=== PATIENT | female | born 1965 | race Caucasian/White ===

== ENCOUNTER → 2016-07-31 | Outpatient (CLI) | payer BC | LOC: RAD 15:25 | PROVIDERS: ATTEND Nurse Practitioner Family | DX: R10.2 Pelvic and perineal pain (principal) | CPT/HCPCS: 76830 ==

== ENCOUNTER → 2016-09-14 | Outpatient (CLI) | payer BC | LOC: WI 10:06 | PROVIDERS: ATTEND Family Medicine | DX: N63 Unspecified lump in breast (principal) | CPT/HCPCS: 76642 ==

== ENCOUNTER → 2017-04-04 | Outpatient (CLI) | payer BC ==
--- NOTE | 2017-04-04 11:32 | WOMENS IMAGING REPORT ---
EXAM DESCRIPTION: BILAT SCREENING MAMMO W/CAD COMPLETED DATE/TIME: 04/04/2017 10:50 am REASON FOR STUDY: ROUTINE SCREENING; Z12.31 Z12.31 ENCNTR SCREEN MAMMOGRAM FOR MALIGNANT NEOPLASM O F [place] COMPARISON: 2013 to 2015 TECHNIQUE: Standard craniocaudal and mediolateral oblique views of each breast recorded using Taomeea l acquisition. LIMITATIONS: None. FINDINGS: No masses, calcifications or architectural distortion. No areas of suspicion. Read with the assistance of CAD. .[facility] - R2 Cenova Version 1.3 .[facility] - R2 Cenova Version 1.3 .[facility] - R2 Cenova Version 2.4 .[facility] [place] R2 Cenova Version 2.4 .[facility] - R2 Corporate Tax Preparer Version 9.2 IMPRESSION: NORMAL MAMMOGRAM. BIRADS 1. BREAST DENSITY: b. There are scattered areas of fibroglandular density. BIRAD: 1 NEGATIVE RECOMMENDATION: ROUTINE SCREENING COMMENT: The patient has been notified of the results by letter per SA requirements. Additional no tification policies are in place for contacting patient with suspicious or incomplete findings. Quality ID #[id number]: The [employer] recommends an annual screening mammogram for women aged 40 years or over. This facility utilizes a reminder system to ensure that all patients receive reminder letters, and/or direct phone calls for appointments. This includes reminders for routine scr eening mammograms, diagnostic mammograms, or other Breast Imaging Interventions when appropriate. Th is patient will be placed in the appropriate reminder system. The [employer] (ACR) has developed recommendations for screening MRI of the breast s in certain patient populations, to be used in conjunction with mammography. Breast MRI surveillanc e may be appropriate for women with more than 20% lifetime risk of developing breast cancer as deter mined by genetic testing, significant family history of the disease, or history of mantle radiation f or Hodgkins Disease. ACR Practice Guidelines 2008. TECHNICAL DOCUMENTATION: FINDING NUMBER: (1) ASSESSMENT: (1) JOB ID: [id number] [employer]- All Rights Reserved
== END ==
LOC: WI 09:18
PROVIDERS: ATTEND Family Medicine
DX: Z12.31 Encounter for screening mammogram for malignant neoplasm of breast (principal)
CPT/HCPCS: 77067; G0202

== ENCOUNTER 2017-07-23 09:04 | Emergency (ER) | payer SELFPAY ==
[2017-07-23] MEDS ORDERED: KETOROLAC TROMETHAMINE 60 MG/2 ML SDV IM ONE (09:41)
--- NOTE | 2017-07-23 11:00 | ER Document Report ---
ED General - General Chief Complaint: Breast Problem Stated Complaint: BREAST PAIN Time Seen by Provider: 07/23/17 09:22 Mode of Arrival: Ambulatory Information source: Patient TRAVEL OUTSIDE OF THE U.[place]. IN LAST 30 DAYS: No - HPI Notes: 52-year-old female presents today with complaints of left breast burning 4 days ago and with the rash around her left nipple showing last night. Reports pain is 6 out of 10, throbbing and aching. Denies any fevers or chills. Denies any drainage from nipple. Denies any masses around her breasts. Has not tried any dezy-yos-mvadbcq medication for pain. States pain is progressive , nothing makes better. Has not tried any warm compresses. Patient denies being in any wooded areas. Eating and drinking without issues. Worse with palpation, states nothing makes better. - Related Data Allergies/Adverse Reactions: SULFUR Adverse Reaction (Uncoded 07/23/17 09:05) Hives Past Medical History - General Information source: Patient - Social History Smoking Status: Current Every Day Smoker Chew tobacco use (# tins/day): No Frequency of alcohol use: Occasional Drug Abuse: None Family History: denies: CAD Patient has suicidal ideation: No Patient has homicidal ideation: No - Past Medical History Cardiac Medical History: Reports: Hx Hypercholesterolemia, Hx Hypertension Denies: Hx Coronary Artery Disease, Hx DVT, Hx Heart Attack Pulmonary Medical History: Reports: Hx Bronchitis Denies: Hx Asthma, Hx COPD, Hx Pneumonia Neurological Medical History: Denies: Hx Cerebrovascular Accident, Hx Seizures Renal/ Medical History: Denies: Hx Peritoneal Dialysis Musculoskeltal Medical History: Reports Hx Arthritis Psychiatric Medical History: Reports: Hx Bipolar Disorder, Hx Depression Past Surgical History: Reports: Hx Tubal Ligation. Denies: Hx Hysterectomy - Immunizations Hx Diphtheria, Pertussis, Tetanus Vaccination: Yes - 2008 Review of Systems - Review of Systems Constitutional: No symptoms reported EENT: No symptoms reported Cardiovascular: No symptoms reported Respiratory: No symptoms reported Gastrointestinal: No symptoms reported Genitourinary: No symptoms reported Female Genitourinary: No symptoms reported Musculoskeletal: No symptoms reported Skin: See HPI Hematologic/Lymphatic: No symptoms reported Neurological/Psychological: No symptoms reported Physical Exam - Vital signs Vitals: Temp Pulse Resp BP Pulse Ox 98.7 F 65 16 162/79 H 97 07/23/17 09:14 07/23/17 09:14 02/06/18 09:14 07/23/17 09:14 07/23/17 09:14 - Notes Notes: PHYSICAL EXAMINATION: GENERAL: Well-appearing, well-nourished and in no acute distress. HEAD: Atraumatic, normocephalic. EYES: Pupils equal round and reactive to light, extraocular movements intact, conjunctiva are normal. ENT: Nares patent, oropharynx clear without exudates. Moist mucous membranes. NECK: Normal range of motion, supple without lymphadenopathy LUNGS: Breath sounds clear to auscultation bilaterally and equal. No wheezes rales or rhonchi. HEART: Regular rate and rhythm without murmurs ABDOMEN: Soft, nontender, nondistended abdomen. No guarding, no rebound. No masses appreciated. Female : deferred Musculoskeletal: Normal range of motion, no pitting or edema. No cyanosis. NEUROLOGICAL: Cranial nerves grossly intact. Normal speech, normal gait. Normal sensory, motor exams PSYCH: Normal mood, normal affect. SKIN: Warm, Dry, normal turgor, no rashes or lesions note besides left breast with excoriation on nipple, noted bull's-eye rash approximately 2 cm from the nipple, circumferential. scant erythema. No induration, drainage, no fluctuance. No palpated lump on breast examination. No appreciated lymphadenopathy in left axilla area. Course - Re-evaluation Re-evalutation: Rechecked the patient who is resting comfortably. On re-exam, patient is symptomatically improved. Discussed the results of the labs/radiology as well as the diagnosis at great length. u/s left breast negative for any acute findings. take antibiotics as directed with food, eat yogurt daily to prevent loose stool. Discussed the need to return to the ER for any new or worsening sx. Patient understands to take the Rx as directed. All questions answered. Patient comfortable with the decision to go home. - Vital Signs Vital signs: Temp Pulse Resp BP Pulse Ox 97.8 F 71 18 154/82 H 99 07/23/17 13:06 07/23/17 13:06 07/23/17 13:06 07/23/17 13:06 07/23/17 13:06 Discharge - Discharge Clinical Impression: Mastitis Condition: Good Disposition: HOME, SELF-CARE Additional Instructions: Cellulitis You have an infection of your skin and underlying soft tissues called cellulitis. This is due to bacteria, which can enter through any break in the skin, or even through an irritated hair follicle. Untreated, cellulitis will usually worsen. Antibiotics are required. Usually, warm packs or warm soaks, and elevation of the infected area are recommended. You should start getting better within 24 to 36 hours. Most infections respond quickly to the right medication. Follow-up care is important, however, to check for abscess (boil) formation, unsuspected foreign body, or resistant infection. If you develop fever, chills, or if the area of infection is becoming rapidly more swollen or painful, call the doctor at once. Warm compress 20 minutes on 20 minutes off several times a day. Follow-up with primary care provider as well as [facility] for left-sided mastitis. Take antibiotics with food, eat yogurt daily to prevent loose stool. If erythema, swelling, pain comes worse worse outside of marked area, return to the emergency room since possible. Prescriptions: Doxycycline Hyclate 100 mg PO BID #20 capsule Forms: Return to Work Referrals: SAMANTHA FRANCOIS MD [COMMUNITY BASED STAFF] - Follow up in 3-5 days PHILIP GONZALEZ MD [ACTIVE STAFF] - Follow up in 3-5 days
--- NOTE | 2017-07-23 12:26 | RADIOLOGY REPORT (SQ) ---
EXAM DESCRIPTION: U/S BREAST UNILATERAL LIMITED COMPLETED DATE/TIME: 07/23/2017 11:43 am REASON FOR STUDY: pain in L breast, r/o abscess/cyst COMPARISON: None TECHNIQUE: Static and Realtime grayscale interrogation of focal area(s) of concern in the left breas t(s) acquired. Selected color doppler/spectral images saved to PACS. LIMITATIONS: None. FINDINGS: Masses:No cystic or solid masses identified Architecture:No alteration of normal morphology. No skin thickening. No edema. Other: Increased vascularity involving the nipple which is enlarged probably secondary to inflammatio n. Abscess not identified. Echogenic focus within the nipple could represent ingrown hair follicle. IMPRESSION: Abscess or abnormal fluid collection not identified. Nipple increase in size secondary to inflammation and edema. Echogenic focus within the nipple could represent ingrown hair follicle. BIRAD: 1 Negative. RECOMMENDATION: RECOMMENDED FOLLOW-UP: Follow-up as clinically indicated. COMMENT: The [employer] (ACR) has developed recommendations for screening MRI of the breasts in certain patient populations, to be used in conjunction with mammography. Breast MRI s urveillance may be appropriate for women with more than 20% lifetime risk of developing breast cancer as determined by genetic testing, significant family history of the disease, or history of mantle r adiation for Hodgkins Disease. ACR Practice Guidelines 2008. TECHNICAL DOCUMENTATION: FINDING NUMBER: (1) ASSESSMENT: (1) JOB ID: [id number] [employer]- All Rights Reserved
[2017-07-23 13:07] VITALS: BP 154/82
== END 2017-07-23 13:06 | disposition home or self-care (01) ==
LOC: ER 09:04
DX: N61.0 Mastitis without abscess (principal); F17.200 Nicotine dependence, unspecified, uncomplicated; I10 Essential (primary) hypertension
CPT/HCPCS: 99284; 96372; 76642; J1885

== ENCOUNTER 2017-08-19 06:02 | Emergency (ER) | payer SELFPAY ==
--- NOTE | 2017-08-19 06:16 | ER Document Report ---
ED Medical Screen (RME) - General Chief Complaint: Fever Stated Complaint: POSSIBLE FEVER Time Seen by Provider: 08/19/17 06:14 Mode of Arrival: Ambulatory Information source: Patient TRAVEL OUTSIDE OF THE U.[place]. IN LAST 30 DAYS: No - HPI Patient complains to provider of: MULTIPLE COMPLAINTS Notes: 08/19/17 06:15 The patient is here with him multiple complaints for the last 2 weeks. She reports nausea, vomiting, fever, dysuria, cough. Physical exam shows a benign exam with clear lungs and no distress. Minimal tenderness to the suprapubic area. An initial examination was made on the patient as part of the triage process, and it was determined a more comprehensive evaluation was necessary. Initial labs were ordered and patient was transferred to another provider in the ED who assumed care and finished evaluation and plan. - Related Data Allergies/Adverse Reactions: SULFUR Adverse Reaction (Uncoded 08/19/17 06:03) Hives Past Medical History - Past Medical History Cardiac Medical History: Reports: Hx Hypercholesterolemia, Hx Hypertension Denies: Hx Coronary Artery Disease, Hx DVT, Hx Heart Attack Pulmonary Medical History: Reports: Hx Bronchitis Denies: Hx Asthma, Hx COPD, Hx Pneumonia Neurological Medical History: Denies: Hx Cerebrovascular Accident, Hx Seizures Renal/ Medical History: Denies: Hx Peritoneal Dialysis Musculoskeltal Medical History: Reports Hx Arthritis Psychiatric Medical History: Reports: Hx Bipolar Disorder, Hx Depression Past Surgical History: Reports: Hx Tubal Ligation. Denies: Hx Hysterectomy - Immunizations Hx Diphtheria, Pertussis, Tetanus Vaccination: Yes - 2008 Physical Exam - Vital signs Vitals: Temp Pulse Resp BP Pulse Ox 97.9 F 82 20 159/82 H 97 08/19/17 06:07 08/19/17 06:07 08/19/17 06:07 08/19/17 06:07 08/19/17 06:07 Course - Vital Signs Vital signs: Temp Pulse Resp BP Pulse Ox 97.9 F 82 20 159/82 H 97 08/19/17 06:07 08/19/17 06:07 08/19/17 06:07 08/19/17 06:07 08/19/17 06:07
[2017-08-19 06:37] LABS: ABSOLUTE BASOPHILS # (AUTO) 0.1 10^3/uL (0.0-0.2); ABSOLUTE LYMPHOCYTES (AUTO) 1.9 10^3/uL (0.5-4.7); ABSOLUTE MONOCYTES (AUTO) 0.6 10^3/uL (0.1-1.4); ABSOLUTE NEUT (AUTO) 6.3 10^3/uL (1.7-8.2); EOSINOPHILS % (AUTO) 0.5 % (0-6); HEMATOCRIT 43.5 % (36.0-47.0); HEMOGLOBIN 15.2 g/dL (12.0-15.5); LYMPHOCYTES % (AUTO) 21.7 % (13-45); MEAN CORPUSCULAR HEMOGLOBIN 34.8 pg (27.0-33.4); MEAN CORPUSCULAR HGB CONC 34.9 g/dL (32.0-36.0); MEAN CORPUSCULAR VOLUME 100 fl (80-97); MONOCYTES % (AUTO) 6.5 % (3-13); PLATELET COUNT 215 10^3/uL (150-450); RED BLOOD COUNT 4.36 10^6/uL (3.72-5.28); RED CELL DISTRIBUTION WIDTH 13.7 % (11.5-14.0); SEGMENTED NEUTROPHILS % (AUTO) 70.3 % (42-78); TOTAL CELLS COUNTED % (AUTO) 100 %; WHITE BLOOD COUNT 8.9 10^3/uL (4.0-10.5)
[2017-08-19 06:48] LABS: AMORPHOUS SEDIMENT,URINE TRACE /HPF; APPEARANCE,URINE CLOUDY; BILIRUBIN,URINE NEGATIVE (NEGATIVE); COLOR,URINE YELLOW; GLUCOSE, URINE NEGATIVE (NEGATIVE); KETONES,URINE NEGATIVE (NEGATIVE); LEUKOCYTE ESTERASE,URINE TRACE (NEGATIVE); NITRITE,URINE NEGATIVE (NEGATIVE); PROTEIN,URINE NEGATIVE (NEGATIVE); URINE SPECIFIC GRAVITY 1.013; UROBILINOGEN,URINE NEGATIVE mg/dL (<2.0)
[2017-08-19 06:48] LABS: ALANINE AMINOTRANSFERASE 31 U/L (9-52); ALBUMIN 4.5 g/dL (3.5-5.0); ALKALINE PHOSPHATASE 105 U/L (38-126); ANION GAP 12 (5-19); ASPARTATE AMINO TRANSFERASE 18 U/L (14-36); BILIRUBIN,DIRECT 0.1 mg/dL (0.0-0.4); BILIRUBIN,TOTAL 0.4 mg/dL (0.2-1.3); BLOOD UREA NITROGEN 7 mg/dL (7-20); CALCIUM 9.9 mg/dL (8.4-10.2); CARBON DIOXIDE 25 mmol/L (22-30); CHLORIDE 104 mmol/L (98-107); GLUCOSE 102 mg/dL (75-110); SODIUM 141.1 mmol/L (137-145); TOTAL PROTEIN 7.1 g/dL (6.3-8.2)
--- NOTE | 2017-08-19 06:51 | ER Document Report ---
ED General - General Chief Complaint: Fever Stated Complaint: POSSIBLE FEVER Time Seen by Provider: 08/19/17 06:14 Mode of Arrival: Ambulatory Information source: Patient Notes: 52 yr old smoker copd presents with complaints of cough, congestion, burning of her chest when she coughs, nausea, vomiting , diarrhea and dysuria with intermittent fevers of 1 week duration. pt dneies any chest pain. denies any significant sob, notes she has had ot smoke less. TRAVEL OUTSIDE OF THE [place] IN LAST 30 DAYS: No - HPI Onset: Last week Onset/Duration: Intermittent Quality of pain: Burning Severity: Mild Pain Level: 1 Associated symptoms: Body/muscle aches, Chills, Nonproductive cough, Productive cough - yellow, Diarrhea, Fever, Nausea, Vomiting Exacerbated by: Denies Relieved by: Denies Similar symptoms previously: Yes - uti 1 month ago Recently seen / treated by doctor: No - Related Data Allergies/Adverse Reactions: SULFUR Adverse Reaction (Uncoded 08/19/17 06:03) Hives Past Medical History - General Information source: Patient - Social History Smoking Status: Current Every Day Smoker Cigarette use (# per day): Yes Chew tobacco use (# tins/day): No Smoking Education Provided: Yes - Patient counselled regarding cessation for 4 minutes Family History: Reviewed & Not Pertinent. denies: CAD Patient has suicidal ideation: No Patient has homicidal ideation: No - Past Medical History Cardiac Medical History: Reports: Hx Hypercholesterolemia, Hx Hypertension Denies: Hx Coronary Artery Disease, Hx DVT, Hx Heart Attack Pulmonary Medical History: Reports: Hx Bronchitis Denies: Hx Asthma, Hx COPD, Hx Pneumonia Neurological Medical History: Denies: Hx Cerebrovascular Accident, Hx Seizures Renal/ Medical History: Denies: Hx Peritoneal Dialysis Musculoskeltal Medical History: Reports Hx Arthritis Psychiatric Medical History: Reports: Hx Bipolar Disorder, Hx Depression Past Surgical History: Reports: Hx Tubal Ligation. Denies: Hx Hysterectomy - Immunizations Hx Diphtheria, Pertussis, Tetanus Vaccination: Yes - 2008 Review of Systems - Review of Systems Notes: REVIEW OF SYSTEMS: CONSTITUTIONAL : Admits fevers chills EENT: Denies eye, ear, throat, or mouth pain or symptoms. Denies nasal or sinus congestion or discharge. Denies throat, tongue, or mouth swelling or difficulty swallowing. CARDIOVASCULAR: Denies chest pain. Denies palpitations or racing or irregular heart beat. Denies ankle edema. RESPIRATORY: Admits cough congestion GASTROINTESTINAL: Admits nausea vomiting diarrhea GENITOURINARY: Denies difficulty urinating, painful urination, burning, frequency, blood in urine, or discharge. FEMALE GENITOURINARY: Denies vaginal bleeding, heavy or abnormal periods, irregular periods. Denies vaginal discharge or odor. MUSCULOSKELETAL: Denies back or neck pain or stiffness. Denies joint pain or swelling. SKIN: Denies rash, lesions or sores. HEMATOLOGIC : Denies easy bruising or bleeding. LYMPHATIC: Denies swollen, enlarged glands. NEUROLOGICAL: Denies confusion or altered mental status. Denies passing out or loss of consciousness. Denies dizziness or lightheadedness. Denies headache. Denies weakness or paralysis or loss of use of either side. Denies problems with gait or speech. Denies sensory loss, numbness, or tingling. Denies seizures. PSYCHIATRIC: Denies anxiety or stress. Denies depression, suicidal ideation, or homicidal ideation. ALL OTHER SYSTEMS REVIEWED AND NEGATIVE. PHYSICAL EXAMINATION: GENERAL: Appears older than stated age smells of cigarette smoke HEAD: Atraumatic, normocephalic. EYES: Pupils equal round and reactive to light, extraocular movements intact, conjunctiva are normal. ENT: Nares patent, oropharynx clear without exudates. Moist mucous membranes. NECK: Normal range of motion, supple without lymphadenopathy LUNGS: Breath sounds clear to auscultation bilaterally and equal. No wheezes rales or rhonchi. HEART: Regular rate and rhythm without murmurs ABDOMEN: Soft, nontender, nondistended abdomen. No guarding, no rebound. No masses appreciated. Female : deferred Musculoskeletal: Normal range of motion, no pitting or edema. No cyanosis. NEUROLOGICAL: Cranial nerves grossly intact. Normal speech, normal gait. Normal sensory, motor exams PSYCH: Normal mood, normal affect. SKIN: Warm, Dry, normal turgor, no rashes or lesions noted. Dictation was performed using [employer] voice recognition software Physical Exam - Vital signs Vitals: Temp Pulse Resp BP Pulse Ox 97.9 F 82 20 159/82 H 97 08/19/17 06:07 08/19/17 06:07 08/19/17 06:07 08/19/17 06:07 08/19/17 06:07 Course - Re-evaluation Re-evalutation: 08/19/17 06:51 Patient has probable viral syndrome as well as associated UTI, lab work pending at this time 08/19/17 07:24 Patient's urinalysis notes trace leuk esterase, xray noted no obvious infiltrate. Patient is afebrile here overall looks well is in no distress I will treat symptomatically for the UTI After performing a Medical Screening Examination, I estimate there is LOW risk for ACUTE APPENDICITIS, BOWEL OBSTRUCTION, ACUTE CHOLECYSTITIS, PERFORATED DIVERTICULITIS, INCARCERATED HERNIA, PANCREATITIS, PELVIC INFLAMMATORY DISEASE, PERFORATED ULCER, ECTOPIC , or TUBO-OVARIAN ABSCESS, thus I consider the discharge disposition reasonable. Also, there is no evidence or peritonitis , sepsis, or toxicity. I have reevaluated this patient multiple times and no significant life threatening changes are noted. The patient and I have discussed the diagnosis and risks, and we agree with discharging home with close follow-up with the understanding that symptoms and presentations can change. We also discussed returning to the Emergency Department immediately if new or worsening symptoms occur. We have discussed the symptoms which are most concerning (e.g., bloody stool, fever, changing or worsening pain, vomiting) that necessitate immediate return. - Vital Signs Vital signs: Temp Pulse Resp BP Pulse Ox 97.9 F 82 20 159/82 H 97 08/19/17 06:07 08/19/17 06:07 08/19/17 06:07 08/19/17 06:07 08/19/17 06:07 - Laboratory Result Diagrams: 08/19/17 06:20 08/19/17 06:20 Laboratory results interpreted by me: 08/19/17 08/19/17 06:20 06:25 MCV 100 H MCH 34.8 H Ur Leukocyte Esterase TRACE H - Diagnostic Test Radiology reviewed: Image reviewed, Reports reviewed - No acute abnormal Discharge - Discharge Clinical Impression: URI with cough and congestion UTI (urinary tract infection) Qualifiers: Urinary tract infection type: acute cystitis Hematuria presence: without hematuria Qualified Code(s): N30.00 - Acute cystitis without hematuria Condition: Stable Disposition: HOME, SELF-CARE Instructions: Viral Syndrome ([facility]), Urinary Tract Infection ([facility]) Prescriptions: Cephalexin Monohydrate [Keflex 500 mg Capsule] 500 mg PO BID 5 Days capsule Referrals: KURTIS WEINSTEIN PA-C [Primary Care Provider] - Follow up as needed
--- NOTE | 2017-08-19 07:25 | RADIOLOGY REPORT (SQ) ---
EXAM DESCRIPTION: CHEST PA/LAT CLINICAL HISTORY: 52 years, Female, COUGH COMPARISON: 11/11/14 NUMBER OF VIEWS: 2 LIMITATIONS: None. FINDINGS: Normal lung volume, clear parenchyma, normal cardiac silhouette, and intact bony thorax. IMPRESSION: No acute cardiopulmonary findings.
[2017-08-19 07:45] VITALS: BP 161/80
== END 2017-08-19 07:45 | disposition home or self-care (01) ==
LOC: ER 06:02
DX: J06.9 Acute upper respiratory infection, unspecified (principal); N30.00 Acute cystitis without hematuria; R05 Cough; R11.2 Nausea with vomiting, unspecified; R19.7 Diarrhea, unspecified; M79.1 Myalgia; F17.210 Nicotine dependence, cigarettes, uncomplicated; Z71.6 Tobacco abuse counseling
CPT/HCPCS: 36415; 71046; 80053; 81001; 83690; 85025; 99283; 99406

== ENCOUNTER 2017-08-24 16:46 | Emergency (ER) | payer SELFPAY ==
--- NOTE | 2017-08-24 18:48 | ER Document Report ---
HPI - HPI Patient complains to provider of: Labia sores and right anterior lateral rib pain Onset: Other - Several days Onset/Duration: Gradual Pain Level: 5 Context: 52-year-old smoker female seen August 19 and diagnosed with upper respiratory infection and urinary tract infection she has been taking cephalexin and now has labia sores and pain. She also has developed right lower anterior lateral chest pain with movement and cough. Associated Symptoms: None Exacerbated by: Movement Relieved by: Denies Similar symptoms previously: No Recently seen / treated by doctor: Yes - ROS ROS below otherwise negative: Yes Systems Reviewed and Negative: Yes All other systems reviewed and negative - REPRODUCTIVE Reproductive: DENIES: : Past Medical History - General Information source: Patient - Social History Smoking Status: Current Every Day Smoker Frequency of alcohol use: None Drug Abuse: None Lives with: Family Family History: Reviewed & Not Pertinent. denies: CAD - Past Medical History Cardiac Medical History: Reports: Hx Hypercholesterolemia, Hx Hypertension Pulmonary Medical History: Reports: Hx Bronchitis Renal/ Medical History: Denies: Hx Peritoneal Dialysis Musculoskeltal Medical History: Reports Hx Arthritis Psychiatric Medical History: Reports: Hx Bipolar Disorder, Hx Depression Past Surgical History: Reports: Hx Tubal Ligation - Immunizations Hx Diphtheria, Pertussis, Tetanus Vaccination: Yes - 2008 Vertical Provider Document - CONSTITUTIONAL Agree With Documented VS: Yes Exam Limitations: No Limitations - INFECTION CONTROL TRAVEL OUTSIDE OF THE [place]. IN LAST 30 DAYS: No - HEENT HEENT: Normocephalic - NECK Neck: Supple - RESPIRATORY Respiratory: Breath Sounds Normal, No Respiratory Distress O2 Sat by Pulse Oximetry: 96 Notes: tender lower anterior lateral ribs with palpation, - CARDIOVASCULAR Cardiovascular: Regular Rate, Regular Rhythm - GI/ABDOMEN Gastrointestinal: Abdomen Soft, Abdomen Non-Tender, No Organomegaly - MUSCULOSKELETAL/EXTREMETIES Musculoskeletal/Extremeties: MAEW - NEURO Level of Consciousness: Awake, Alert, Appropriate - DERM Notes: labia minor with shaloow ulcerations bilaterally Course - Re-evaluation Re-evalutation: 08/24/17 20:04 Wet mount has budding yeast 3+ WBCs 3+ bacteria and 3+ epithelial cells, will treat with metronidazole for bacterial vaginosis and Diflucan for yeast. Ribs chest x-ray is negative per the radiologist 08/24/17 20:35 - Vital Signs Vital signs: Temp Pulse Resp BP Pulse Ox 98.0 F 84 16 146/122 H 96 03/10/18 16:59 08/24/17 16:59 08/24/17 16:59 08/24/17 16:59 08/24/17 16:59 Discharge - Discharge Clinical Impression: Labial lesion, right rib pain from coughing, Yeast vaginitis, Bacterial vaginosis Condition: Good Disposition: HOME, SELF-CARE Instructions: Anti-Inflammatory Medication ([facility]), Metronidazole ([facility]), Topical Lidocaine ([facility]), Vaginal Yeast Infection ([facility]), Vaginosis, Bacterial ([facility]) Additional Instructions: topical lidocaine to numb the skin the herpes culture is pending diflucan for the yeast infection to er if worse Prescriptions: Ibuprofen [Motrin 800 mg Tablet] 800 mg PO Q8HP PRN #30 tablet PRN Reason: Fluconazole [Diflucan] 150 mg PO ONCE PRN #1 tablet PRN Reason: Lidocaine [Topicaine] 1 gm TP TIDP PRN #30 gel..gram. PRN Reason:
[2017-08-24] MEDS ORDERED: LIDOCAINE 2% JELLY 30 ML TUBE TOP ONE (19:16)
[2017-08-24] MEDS ORDERED: LIDOCAINE 2% JELLY 5 ML TUBE TOP ONE ×2 (19:19→20:35)
[2017-08-24 19:38] LABS: RBCS (WET MOUNT) RARE RBCS SEEN; T.VAGINALIS (WET MOUNT) NO TRICHOMONAS SEEN; WBCS (WET MOUNT) 3+ WBCS SEEN; YEAST (WET MOUNT) BUDDING YEAST SEEN
[2017-08-24 19:39] LABS: BACTERIA (WET MOUNT) 3+ BACTERIA SEEN; EPITHELIALS (WET MOUNT) 3+ EPITHELIALS SEEN
--- NOTE | 2017-08-24 20:29 | RADIOLOGY REPORT (SQ) ---
EXAM DESCRIPTION: RIBS RIGHT W/PA CHEST COMPLETED DATE/TIME: 08/24/2017 8:15 pm REASON FOR STUDY: pain right lower ribs COMPARISON: Chest radiograph 08/19/2017 TECHNIQUE: Frontal view of the chest and additional views of the right ribs acquired. NUMBER OF VIEWS: Four view. LIMITATIONS: None. FINDINGS: FRONTAL CXR: No pneumothorax. No pleural effusion. No atelectasis or infiltrates. RIBS: No displaced rib fractures. No lytic or blastic bony lesions. OTHER: No other significant finding. IMPRESSION: NO PNEUMOTHORAX. NO DISPLACED RIB FRACTURES. COMMENT: SITE OF TRAUMA/COMPLAINT MARKED/STAMP COMPLETED: NO. TECHNICAL DOCUMENTATION: JOB ID: [id number] [employer]- All Rights Reserved Reading location - IP/workstation name: [email or web address]
[2017-08-24 21:03] VITALS: BP 145/97
== END 2017-08-24 21:00 | disposition home or self-care (01) ==
LOC: ER 16:46
DX: B37.3 Candidiasis of vulva and vagina (principal); N76.0 Acute vaginitis; B96.89 Other specified bacterial agents as the cause of diseases classified elsewhere; N39.0 Urinary tract infection, site not specified; N76.6 Ulceration of vulva; R05 Cough; R07.81 Pleurodynia; F17.200 Nicotine dependence, unspecified, uncomplicated; I10 Essential (primary) hypertension
CPT/HCPCS: 87210; 87250; 99283

== ENCOUNTER 2017-12-04 08:07 | Emergency (ER) | payer SELFPAY ==
[2017-12-04] MEDS ORDERED: NORMAL SALINE 1000 ML 1,000 ML IV ONE (08:22)
[2017-12-04] MEDS ORDERED: ONDANSETRON 4 MG TAB.RAPDIS PO ONE (08:46)
[2017-12-04 08:48] LABS: ABSOLUTE BASOPHILS # (AUTO) 0.1 10^3/uL (0.0-0.2); ABSOLUTE EOSINOPHILS # (AUTO) 0.1 10^3/uL (0.0-0.6); ABSOLUTE LYMPHOCYTES (AUTO) 1.8 10^3/uL (0.5-4.7); ABSOLUTE MONOCYTES (AUTO) 0.6 10^3/uL (0.1-1.4); ABSOLUTE NEUT (AUTO) 7.5 10^3/uL (1.7-8.2); BASOPHILS % (AUTO) 0.5 % (0-2); EOSINOPHILS % (AUTO) 0.6 % (0-6); HEMATOCRIT 45.1 % (36.0-47.0); HEMOGLOBIN 15.7 g/dL (12.0-15.5); LYMPHOCYTES % (AUTO) 17.6 % (13-45); MEAN CORPUSCULAR HEMOGLOBIN 33.8 pg (27.0-33.4); MEAN CORPUSCULAR HGB CONC 34.7 g/dL (32.0-36.0); MEAN CORPUSCULAR VOLUME 98 fl (80-97); MONOCYTES % (AUTO) 5.8 % (3-13); PLATELET COUNT 224 10^3/uL (150-450); RED BLOOD COUNT 4.63 10^6/uL (3.72-5.28); RED CELL DISTRIBUTION WIDTH 13.9 % (11.5-14.0); SEGMENTED NEUTROPHILS % (AUTO) 75.5 % (42-78); TOTAL CELLS COUNTED % (AUTO) 100 %
[2017-12-04 09:08] LABS: ALANINE AMINOTRANSFERASE 19 U/L (9-52); ALBUMIN 4.3 g/dL (3.5-5.0); ALKALINE PHOSPHATASE 105 U/L (38-126); ANION GAP 12 (5-19); ASPARTATE AMINO TRANSFERASE 19 U/L (14-36); BILIRUBIN,DIRECT 0.4 mg/dL (0.0-0.4); BILIRUBIN,TOTAL 0.4 mg/dL (0.2-1.3); BLOOD UREA NITROGEN 13 mg/dL (7-20); CALCIUM 10.1 mg/dL (8.4-10.2); CARBON DIOXIDE 27 mmol/L (22-30); CHLORIDE 106 mmol/L (98-107); GLUCOSE 107 mg/dL (75-110); LIPASE 98.9 U/L (23-300); POTASSIUM 4.2 mmol/L (3.6-5.0); SODIUM 144.9 mmol/L (137-145); TOTAL PROTEIN 7.4 g/dL (6.3-8.2)
[2017-12-04 09:22] LABS: AMORPHOUS SEDIMENT,URINE TRACE /HPF; APPEARANCE,URINE SLIGHTLY-CLOUDY; BILIRUBIN,URINE NEGATIVE (NEGATIVE); COLOR,URINE YELLOW; GLUCOSE, URINE NEGATIVE (NEGATIVE); KETONES,URINE NEGATIVE (NEGATIVE); LEUKOCYTE ESTERASE,URINE SMALL (NEGATIVE); NITRITE,URINE NEGATIVE (NEGATIVE); PROTEIN,URINE NEGATIVE (NEGATIVE); URINE SPECIFIC GRAVITY 1.018
--- NOTE | 2017-12-04 09:58 | ER Document Report ---
ED GI/ - General Chief Complaint: Nausea/Vomiting/Diarrhea Stated Complaint: VOMITING,DIZZINESS Time Seen by Provider: 12/04/17 08:20 Mode of Arrival: Ambulatory Information source: Patient Notes: Patient is a 52-year-old female who presents to the ER today for nausea, vomiting and watery diarrhea 4 days. Patient states that it has been intermittent and that sometimes she will feel "just fine" and then sometimes she will get nauseated and have hours of vomiting and watery diarrhea. Patient denies eating anything out of the ordinary, denies any sick contacts, denies any fevers although she has had chills and body aches. She admits to diffuse abdominal cramping after the vomiting and diarrhea began. She denies any blood in her diarrhea or vomit. She has no significant medical history of any abdominal issues. TRAVEL OUTSIDE OF THE [place] IN LAST 30 DAYS: No - Related Data Allergies/Adverse Reactions: SULFUR Adverse Reaction (Uncoded 12/04/17 08:41) Hives Past Medical History - General Information source: Patient - Social History Smoking Status: Current Every Day Smoker Frequency of alcohol use: None Drug Abuse: None Family History: Reviewed & Not Pertinent. denies: CAD Patient has suicidal ideation: No Patient has homicidal ideation: No - Past Medical History Cardiac Medical History: Reports: Hx Hypercholesterolemia, Hx Hypertension Denies: Hx Coronary Artery Disease, Hx DVT, Hx Heart Attack Pulmonary Medical History: Reports: Hx Bronchitis Denies: Hx Asthma, Hx COPD, Hx Pneumonia Neurological Medical History: Denies: Hx Cerebrovascular Accident, Hx Seizures Renal/ Medical History: Denies: Hx Peritoneal Dialysis Musculoskeltal Medical History: Reports Hx Arthritis Psychiatric Medical History: Reports: Hx Bipolar Disorder, Hx Depression Past Surgical History: Reports: Hx Tubal Ligation. Denies: Hx Hysterectomy - Immunizations Hx Diphtheria, Pertussis, Tetanus Vaccination: Yes - 2008 Review of Systems - Review of Systems Constitutional: No symptoms reported EENT: No symptoms reported Cardiovascular: No symptoms reported Respiratory: No symptoms reported Gastrointestinal: See HPI Genitourinary: No symptoms reported Female Genitourinary: No symptoms reported Musculoskeletal: No symptoms reported Skin: No symptoms reported Hematologic/Lymphatic: No symptoms reported Neurological/Psychological: No symptoms reported Physical Exam - Vital signs Vitals: Temp Pulse Resp BP Pulse Ox 97.4 F 59 L 18 187/66 H 97 12/04/17 08:16 12/04/17 08:16 12/04/17 08:16 12/04/17 08:16 12/04/17 08:16 - Notes Notes: PHYSICAL EXAMINATION: GENERAL: Mildly ill-appearing, but in no acute distress. HEAD: Atraumatic, normocephalic. EYES: Pupils equal round and reactive to light, extraocular movements intact, sclera anicteric, conjunctiva are normal. ENT: ear canals without erythema or foreign body, TMs pearly pelaez with good bony landmarks, nares patent, oropharynx clear without exudates. Moist mucous membranes. Airway patent NECK: Normal range of motion, supple without lymphadenopathy LUNGS: CTAB and equal. No wheezes rales or rhonchi. HEART: Regular rate and rhythm without murmurs ABDOMEN: Soft, no tenderness. No guarding, no rebound BACK: no vertebral tenderness, normal ROM GI/: no CVA tenderness EXTREMITIES: Normal range of motion, no pitting edema. No cyanosis. NEUROLOGICAL: Cranial nerves grossly intact. Normal sensory/motor exams. PSYCH: Normal mood, normal affect. SKIN: Warm, Dry, normal turgor, no rashes or lesions noted Course - Re-evaluation Re-evalutation: 12/04/17 11:25 Patient feels better after IV fluids, oral Zofran and is eating peanut butter crackers in the bed. Patient was able to keep this down. Patient also drank some jennifer carolann here and was able to keep that down. Patient has not vomited at all in the emergency department today. Lab work is unremarkable today including a normal white blood cell count. - Vital Signs Vital signs: Temp Pulse Resp BP Pulse Ox 97.6 F 53 L 16 177/78 H 98 12/04/17 10:20 12/04/17 10:20 12/04/17 10:20 12/04/17 10:20 12/04/17 10:20 - Laboratory Result Diagrams: 12/04/17 08:30 12/04/17 08:30 Laboratory results interpreted by me: 12/04/17 12/04/17 08:30 08:53 Hgb 15.7 H MCV 98 H MCH 33.8 H Urine Urobilinogen 2.0 H Ur Leukocyte Esterase SMALL H Discharge - Discharge Clinical Impression: Nausea & vomiting Qualifiers: Vomiting type: unspecified Vomiting Intractability: non-intractable Qualified Code(s): R11.2 - Nausea with vomiting, unspecified Diarrhea Qualifiers: Diarrhea type: unspecified type Qualified Code(s): R19.7 - Diarrhea, unspecified Condition: Stable Disposition: HOME, SELF-CARE Instructions: Diarrhea, Nonspecific ([facility]), Intravenous (IV) Fluids ([facility]), Vomiting ([facility]) Additional Instructions: Return immediately for any new or worsening symptoms. Follow up with primary care provider, call tomorrow to make followup appointment. Please drink plenty of fluids. Prescriptions: Ondansetron [Zofran Odt 4 mg Tablet] 1 - 2 tab PO Q4H PRN #15 tab.rapdis PRN Reason: For Nausea/Vomiting Forms: Return to Work Referrals: ED MODI MD [Primary Care Provider] - Follow up as needed
[2017-12-04 10:21] VITALS: BP 177/78
[2017-12-04] MEDS ORDERED: PROPOFOL INJ 200 MG/20 ML VIAL IV ONE (12:35)
== END 2017-12-04 10:23 | disposition home or self-care (01) ==
LOC: ER 08:07
DX: R11.2 Nausea with vomiting, unspecified (principal); R19.7 Diarrhea, unspecified; R10.84 Generalized abdominal pain; I10 Essential (primary) hypertension; F17.200 Nicotine dependence, unspecified, uncomplicated
CPT/HCPCS: 99284; 96360; 36415; 83690; 85025; 80053; 81001; S0119; J7030; J2704

== ENCOUNTER 2018-04-10 08:04 | Emergency (ER) | payer SELFPAY ==
--- NOTE | 2018-04-10 08:31 | ER Document Report ---
HPI - HPI Patient complains to provider of: UTI Onset: Last week Onset/Duration: Persistent Quality of pain: Burning Pain Level: 4 Context: Patient presents complaining of urinary frequency and dysuria for the past 6 days. Patient is concerned she has UTI. Patient denies any flank pain or fever. Patient denies any vomiting. Patient states that she is almost out of her blood pressure medication and recently lost her insurance. Patient is requesting a refill of her blood pressure medicines today. Patient states her blood pressure is up but she just took her medicine about 15 minutes ago. Associated Symptoms: Other - Dysuria, frequency. denies: Headache, Vomiting Exacerbated by: Denies Relieved by: Denies Similar symptoms previously: Yes Recently seen / treated by doctor: No - ROS ROS below otherwise negative: Yes Systems Reviewed and Negative: Yes All other systems reviewed and negative - CONSTITUTIONAL Constitutional: DENIES: Fever - NEURO Neurology: DENIES: Headache, Weakness - CARDIOVASCULAR Cardiovascular: DENIES: Chest pain - GASTROINTESTINAL Gastrointestinal: DENIES: Abdominal Pain, Patient vomiting - URINARY Urinary: REPORTS: Dysuria, Frequency - REPRODUCTIVE Reproductive: DENIES: : - MUSCULOSKELETAL Musculoskeletal: DENIES: Back Pain - DERM Skin Color: Normal Skin Problems: None Past Medical History - General Information source: Patient - Social History Smoking Status: Current Every Day Smoker Smoking Education Provided: Yes Frequency of alcohol use: None Drug Abuse: None Occupation: None Family History: Reviewed & Not Pertinent. denies: CAD - Past Medical History Cardiac Medical History: Reports: Hx Hypercholesterolemia, Hx Hypertension Denies: Hx Coronary Artery Disease, Hx DVT, Hx Heart Attack Pulmonary Medical History: Reports: Hx Bronchitis Denies: Hx Asthma, Hx COPD, Hx Pneumonia Neurological Medical History: Denies: Hx Cerebrovascular Accident, Hx Seizures Renal/ Medical History: Denies: Hx Peritoneal Dialysis Musculoskeletal Medical History: Reports Hx Arthritis Psychiatric Medical History: Reports: Hx Bipolar Disorder, Hx Depression Past Surgical History: Reports: Hx Tubal Ligation. Denies: Hx Hysterectomy - Immunizations Hx Diphtheria, Pertussis, Tetanus Vaccination: Yes - 2008 Vertical Provider Document - CONSTITUTIONAL Agree With Documented VS: Yes Exam Limitations: No Limitations General Appearance: WD/WN, No Apparent Distress - INFECTION CONTROL TRAVEL OUTSIDE OF THE [place] IN LAST 30 DAYS: No - HEENT HEENT: Atraumatic, Normocephalic - NECK Neck: Normal Inspection - RESPIRATORY Respiratory: No Respiratory Distress, Wheezing - scattered - CARDIOVASCULAR Cardiovascular: Regular Rate, Regular Rhythm, No Murmur - GI/ABDOMEN Gastrointestinal: Abdomen Soft, Abdomen Non-Tender, Normal Bowel Sounds - BACK Back: Normal Inspection. negative: CVA Tenderness-Right, CVA Tenderness-Left - MUSCULOSKELETAL/EXTREMETIES Musculoskeletal/Extremeties: MAEW, FROM - NEURO Level of Consciousness: Awake, Alert, Appropriate Motor/Sensory: No Motor Deficit - DERM Integumentary: Warm, Dry, No Rash Course - Vital Signs Vital signs: Temp Pulse Resp BP Pulse Ox 98.1 F 59 L 16 180/76 H 99 04/10/18 08:08 04/10/18 08:08 04/10/18 08:08 04/10/18 08:08 04/10/18 08:08 Discharge - Discharge Clinical Impression: Hx of essential hypertension UTI (urinary tract infection) Qualifiers: Urinary tract infection type: site unspecified Hematuria presence: without hematuria Qualified Code(s): N39.0 - Urinary tract infection, site not specified Condition: Stable Disposition: HOME, SELF-CARE Instructions: Cephalexin ([facility]), High Blood Pressure, Requiring Treatment ([facility]) , Urinary Tract Infection ([facility]) Additional Instructions: Return immediately for any new or worsening symptoms Followup with your primary care provider, call tomorrow to make a followup appointment Follow-up with a primary doctor to refill your blood pressure medications Prescriptions: Atenolol/Chlorthalidone [Atenolol-Chlorthalidone 50-25mg Tablet] 1 tab PO DAILY #15 tablet Cephalexin Monohydrate [Keflex 500 mg Capsule] 500 mg PO Q6H 5 Days capsule Phenazopyridine HCl [Pyridium 200 mg Tablet] 200 mg PO TID #15 tablet Referrals: ED MODI MD [Primary Care Provider] - Follow up as needed [facility] [Provider Group] - Follow up as needed [facility] [Provider Group] - Follow up as needed
[2018-04-10 08:49] LABS: APPEARANCE,URINE CLOUDY; BILIRUBIN,URINE NEGATIVE (NEGATIVE); COLOR,URINE YELLOW; GLUCOSE, URINE NEGATIVE (NEGATIVE); KETONES,URINE NEGATIVE (NEGATIVE); LEUKOCYTE ESTERASE,URINE LARGE (NEGATIVE); NITRITE,URINE NEGATIVE (NEGATIVE); PROTEIN,URINE NEGATIVE (NEGATIVE); URINE SPECIFIC GRAVITY 1.019
[2018-04-10] MEDS ORDERED: CEPHALEXIN 500 MG CAPSULE PO ONE (09:17)
[2018-04-10 09:43] VITALS: BP 143/79
== END 2018-04-10 09:43 | disposition home or self-care (01) ==
LOC: ER 08:04
DX: N39.0 Urinary tract infection, site not specified (principal); I10 Essential (primary) hypertension; E78.00 Pure hypercholesterolemia, unspecified; F31.9 Bipolar disorder, unspecified; Z98.51 Tubal ligation status; F17.200 Nicotine dependence, unspecified, uncomplicated
CPT/HCPCS: 81001; 87086; 99283

== ENCOUNTER 2018-04-14 08:06 | Emergency (ER) | payer SELFPAY ==
--- NOTE | 2018-04-14 08:50 | ER Document Report ---
ED GI/ <MARIETTA PITT - Last Filed: 04/14/18 09:58> - General Mode of Arrival: Ambulatory Information source: Patient TRAVEL OUTSIDE OF THE [place] IN LAST 30 DAYS: No <ROSAS ZAMUDIO - Last Filed: 04/14/18 10:07> - General Chief Complaint: Urinary Frequency Stated Complaint: URINARY ISSUE Time Seen by Provider: 04/14/18 08:24 Notes: 52-year-old female who presents to the emergency department today with complaints of "swelling, tenderness, and pain" in her vaginal area. Patient was seen here 4 days ago because she thought she had a UTI. Patient was sent home on Keflex. Patient's urine culture grew out mixed urogenital jayna. Patient states that the swelling, pain, and tenderness has increased since starting the Keflex. (ROSAS ZAMUDIO) - Related Data Allergies/Adverse Reactions: SULFUR Adverse Reaction (Uncoded 04/14/18 08:07) Hives Past Medical History - General Information source: Patient - Social History Smoking Status: Current Every Day Smoker Cigarette use (# per day): Yes Chew tobacco use (# tins/day): No Frequency of alcohol use: None Drug Abuse: None Lives with: Family Family History: Reviewed & Not Pertinent Patient has suicidal ideation: No Patient has homicidal ideation: No - Past Medical History Cardiac Medical History: Reports: Hx Hypercholesterolemia, Hx Hypertension Pulmonary Medical History: Reports: Hx Bronchitis Musculoskeletal Medical History: Reports Hx Arthritis Psychiatric Medical History: Reports: Hx Bipolar Disorder, Hx Depression Past Surgical History: Reports: Hx Tubal Ligation - Immunizations Hx Diphtheria, Pertussis, Tetanus Vaccination: Yes - 2008 <ROSAS ZAMUDIO - Last Filed: 04/14/18 10:07> Review of Systems - Review of Systems Constitutional: No symptoms reported EENT: No symptoms reported Cardiovascular: No symptoms reported Respiratory: No symptoms reported Gastrointestinal: No symptoms reported Genitourinary: No symptoms reported Female Genitourinary: See HPI, Other - "vaginal swelling, tenderness, and pain" Musculoskeletal: No symptoms reported Skin: No symptoms reported Hematologic/Lymphatic: No symptoms reported Neurological/Psychological: No symptoms reported -: Yes All other systems reviewed and negative <ROSAS ZAMUDIO - Last Filed: 04/14/18 10:07> Physical Exam - Genitourinary External exam: Other - Labia minora and majora are swollen, minimal erosions. There is inflamed tissue. There is a white adherent exudate. This all has the appearance of a yeast introitus. There are no inguinal lymph nodes palpated, and there are no sores to suggest this could have been a genital herpes outbreak. <MARIETTA PITT - Last Filed: 04/14/18 09:58> <ROSAS ZAMUDIO - Last Filed: 04/14/18 10:07> - Vital signs Vitals: Temp Pulse Resp BP Pulse Ox 97.5 F 93 18 187/80 H 94 04/14/18 08:13 04/14/18 08:13 04/14/18 08:13 04/14/18 08:13 04/14/18 08:13 - Notes Notes: Physical Exam: General: Alert, appears well. HEENT: Normocephalic. Atraumatic. PERRL. Extraocular movements intact. Oropharynx clear. Neck: Supple. Non-tender. Respiratory: No respiratory distress. Clear and equal breath sounds bilaterally. Cardiovascular: Regular rate and rhythm. Abdominal: Normal Inspection. Non-tender. No distension. Normal Bowel Sounds. Back: Non-tender. No deformity or step off. Extremities: Moves all four extremities. Upper extremities: Normal inspection. Normal ROM. Lower extremities: Normal inspection. No edema. Normal ROM. Neurological: Normal cognition. AAOx4. Normal speech. Psychological: Normal affect. Normal Mood. Skin: Warm. Dry. Normal color. (ROSAS ZAMUDIO) Course <MARIETTA PITT - Last Filed: 04/14/18 09:58> <ROSAS ZAMUDIO - Last Filed: 04/14/18 10:07> - Re-evaluation Re-evalutation: 04/14/18 09:23 The urine was heavily contaminated with epithelial cells, and yeast. Patient's history is that there was some burning discomfort prior to being seen on 01/08/2018. She was put on Keflex. All the symptoms got much worse after the Keflex. C&S of the urine at that time grew mixed urogenital jayna. She had been here on 08/24/2017 with similar but less severe labial sores and swelling 5 days after being put on Keflex for respiratory illness. 04/14/18 09:58 The patient's blood pressure is quite elevated today. She admits to not taking her blood pressure medication today, but states she does have it at home, she is encouraged to take her medication when she gets home and to remember to take it every day. (MARIETTA PITT) - Vital Signs Vital signs: Temp Pulse Resp BP Pulse Ox 97.6 F 66 20 182/103 H 93 04/14/18 09:50 04/14/18 09:50 04/14/18 09:50 04/14/18 09:50 04/14/18 09:50 - Laboratory Laboratory results interpreted by me: 04/14/18 08:25 Urine Protein 100 H Urine Nitrite POSITIVE H Urine Urobilinogen 4.0 H Ur Leukocyte Esterase MODERATE H Discharge <MARIETTA PITT - Last Filed: 04/14/18 09:58> <ROSAS ZAMUDIO - Last Filed: 04/14/18 10:07> - Discharge Clinical Impression: Vulvovaginal candidiasis High blood pressure Qualifiers: Hypertension type: essential hypertension Qualified Code(s): I10 - Essential ( primary) hypertension Condition: Stable Disposition: HOME, SELF-CARE Additional Instructions: Vaginal Yeast Infection You have evidence of a yeast infection -- called "maria dolores." A vaginal yeast infection often causes itching and discharge. While not dangerous, it can be very unpleasant. A yeast infection often follows the use of powerful antibiotics. It is more likely to occur in diabetics. The treatment now is usually a single pill of Diflucan, but also an antifungal cream or suppository may be used for a few days. You do not need to avoid sexual intercourse. Recurrences are common. You can make a recurrence less likely by wearing cotton underwear and avoiding tight clothing. For mild recurrences, you can try [id number] creams or suppositories that are made specifically for yeast. If the symptoms do not resolve, you should follow up for re-examination. Sometimes treatment of the sexual partner is necessary if infections are recurrent. Be sure to take your blood pressure medication when you get home. Start the Diflucan prescription tomorrow. Use the Mycolog-II cream applied to the affected skin 3 times daily. RETURN TO THE EMERGENCY ROOM IF ANY NEW OR WORSENING SYMPTOMS. Prescriptions: Fluconazole [Diflucan 100 Mg Tablet] 100 mg PO DAILY #4 tablet Referrals: ED MODI MD [Primary Care Provider] - Follow up as needed Scribe Attestation: 04/14/18 09:40 I personally performed the services described in the documentation, reviewed and edited the documentation which was dictated to the scribe in my presence, and it accurately records my words and actions. (MARIETTA PITT) Scribe Documentation - Scribe Written by Fausto:: Fausto Galo, 04/14/2018 1007 acting as scribe for :: Renny <ROSAS ZAMUDIO - Last Filed: 04/14/18 10:07>
[2018-04-14 08:52] LABS: APPEARANCE,URINE CLOUDY; BILIRUBIN,URINE NEGATIVE (NEGATIVE); COLOR,URINE AMBER; GLUCOSE, URINE NEGATIVE (NEGATIVE); KETONES,URINE NEGATIVE (NEGATIVE); LEUKOCYTE ESTERASE,URINE MODERATE (NEGATIVE); NITRITE,URINE POSITIVE (NEGATIVE); PROTEIN,URINE 100 mg/dL (NEGATIVE); URINE SPECIFIC GRAVITY 1.025
[2018-04-14] MEDS ORDERED: FLUCONAZOLE 100 MG TABLET PO ONE (09:09)
[2018-04-14] MEDS ORDERED: NYSTATIN/TRIAMCIN CREAM 15 GM TP ONE (09:12)
[2018-04-14 10:02] VITALS: BP 182/103
== END 2018-04-14 09:58 | disposition home or self-care (01) ==
LOC: ER 08:06
DX: B37.3 Candidiasis of vulva and vagina (principal); I10 Essential (primary) hypertension; Z79.899 Other long term (current) drug therapy; F17.210 Nicotine dependence, cigarettes, uncomplicated
CPT/HCPCS: 99283; 81001; J3490

== ENCOUNTER 2018-04-21 08:05 | Emergency (ER) | payer SELFPAY ==
[2018-04-21] MEDS ORDERED: ATENOLOL 50 MG TABLET PO ONE (08:32)
--- NOTE | 2018-04-21 08:32 | ER Document Report ---
HPI - HPI Patient complains to provider of: Burning with urination Onset: Other - 3 weeks Onset/Duration: Persistent Quality of pain: Burning Pain Level: 4 Context: She complains of rash to perineum with burning with urination that is been going on for the past 3 weeks off and on. Patient has been here for this complaint 2 times recently. Patient states that she was placed on antibiotics for UTI and the rash worsened. Patient states that she was seen here most recently and placed on Diflucan. Patient denies any history of HSV. She without any nausea vomiting abdominal pain or back pain at this time. Patient states that she does have hypertension but that when she was here last she lost her prescription for her medication. Associated Symptoms: Other - Pain with urination, skin rash. denies: Fever Exacerbated by: Denies Relieved by: Denies Similar symptoms previously: Yes Recently seen / treated by doctor: Yes - ROS ROS below otherwise negative: Yes Systems Reviewed and Negative: Yes All other systems reviewed and negative - CONSTITUTIONAL Constitutional: DENIES: Fever, Chills - NEURO Neurology: DENIES: Headache - GASTROINTESTINAL Gastrointestinal: DENIES: Abdominal Pain, Nausea - URINARY Urinary: REPORTS: Dysuria - REPRODUCTIVE Reproductive: DENIES: : - MUSCULOSKELETAL Musculoskeletal: DENIES: Back Pain - DERM Skin Color: Normal Skin Problems: Rash Past Medical History - General Information source: Patient - Social History Smoking Status: Current Every Day Smoker Smoking Education Provided: Yes Frequency of alcohol use: None Drug Abuse: None Family History: Reviewed & Not Pertinent Patient has suicidal ideation: No Patient has homicidal ideation: No - Past Medical History Cardiac Medical History: Reports: Hx Hypercholesterolemia, Hx Hypertension Denies: Hx Coronary Artery Disease, Hx DVT, Hx Heart Attack Pulmonary Medical History: Reports: Hx Bronchitis Denies: Hx Asthma, Hx COPD, Hx Pneumonia Neurological Medical History: Denies: Hx Cerebrovascular Accident, Hx Seizures Renal/ Medical History: Denies: Hx Peritoneal Dialysis Musculoskeletal Medical History: Reports Hx Arthritis Psychiatric Medical History: Reports: Hx Bipolar Disorder, Hx Depression Past Surgical History: Reports: Hx Tubal Ligation. Denies: Hx Hysterectomy - Immunizations Hx Diphtheria, Pertussis, Tetanus Vaccination: Yes - 2008 Vertical Provider Document - CONSTITUTIONAL Agree With Documented VS: Yes Exam Limitations: No Limitations General Appearance: WD/WN - INFECTION CONTROL TRAVEL OUTSIDE OF THE [place] IN LAST 30 DAYS: No - HEENT HEENT: Atraumatic, Normocephalic - NECK Neck: Normal Inspection - RESPIRATORY Respiratory: Breath Sounds Normal, No Respiratory Distress - CARDIOVASCULAR Cardiovascular: Regular Rate, Regular Rhythm - REPRODUCTIVE Female Genitalia: Abnormal Inspection Notes: pt with exudative rash to perineum and labia - MUSCULOSKELETAL/EXTREMETIES Musculoskeletal/Extremeties: MAEW - NEURO Level of Consciousness: Awake, Alert, Appropriate Motor/Sensory: No Motor Deficit - DERM Integumentary: Warm, Dry, No Rash Course - Re-evaluation Re-evalutation: 04/21/18 09:[address] rockwell regarding patient presentation physical exam findings and diagnostic evaluation. Recommends culturing urine and not adding additional antibiotics at this time as he suspects that patient has continued yeast in her urine and suspects yeast infection that is causing her dysuria symptoms. Review of patient's previous records does demonstrate that she does have a history of HSV although patient initially denied this. RN also called the pharmacy where patient got her medications filled and patient does have her prescription for her antihypertensive medications on file there but did not pay to get them filled. Patient is nontoxic at this time and no concern for sepsis. - Vital Signs Vital signs: Temp Pulse Resp BP Pulse Ox 97.8 F 102 H 22 H 189/98 H 99 04/21/18 08:10 04/21/18 08:10 04/21/18 08:10 04/21/18 08:10 04/21/18 08:10 - Laboratory Laboratory results interpreted by me: 04/21/18 09:52 Labs- Entire Visit 04/21/18 04/21/18 08:25 08:25 Urine Color YELLOW Urine Appearance CLOUDY Urine pH 7.0 Ur Specific [place] 1.014 Urine Protein NEGATIVE Urine Glucose (UA) NEGATIVE Urine Ketones NEGATIVE Urine Blood SMALL H Urine Nitrite NEGATIVE Urine Bilirubin NEGATIVE Urine Urobilinogen 2.0 H Ur Leukocyte Esterase LARGE H Urine WBC (Auto) 36 Urine RBC (Auto) 13 Urine Bacteria (Auto) 2+ Squamous Epi Cells Auto 8 Amorphous Sediment Auto TRACE Urine Mucus (Auto) RARE Urine Yeast (Budding) PRESENT Urine Ascorbic Acid NEGATIVE Trichomonas (Wet Prep) NO TRICHOMONAS SEEN Vaginal WBC 3+ WBCS SEEN Vaginal RBC 2+ RBCS SEEN Vaginal Yeast NO YEAST SEEN Discharge - Discharge Clinical Impression: Vulvovaginal candidiasis, hx HSV High blood pressure Qualifiers: Hypertension type: unspecified Qualified Code(s): I10 - Essential (primary) hypertension Condition: Stable Disposition: HOME, SELF-CARE Instructions: Genital Herpes ([facility]), Vaginal Yeast Infection ([facility]) Additional Instructions: Return immediately for any new or worsening symptoms Followup with your primary care provider, call tomorrow to make a followup appointment Leave area open to air as much as possible to allow skin to dry and heal Get your blood pressure medication filled that you dropped off at the pharmacy and take as directed Prescriptions: Clotrimazole [Clotrimazole-7] 1 applic VG QHS #45 gm Fluconazole [Diflucan] 150 mg PO ONCE PRN #4 tablet PRN Reason: Valacyclovir HCl [Valacyclovir] 1,000 mg PO DAILY #5 tablet Referrals: ED MODI MD [Primary Care Provider] - Follow up tomorrow
[2018-04-21 09:11] LABS: RBCS (WET MOUNT) 2+ RBCS SEEN; T.VAGINALIS (WET MOUNT) NO TRICHOMONAS SEEN; WBCS (WET MOUNT) 3+ WBCS SEEN; YEAST (WET MOUNT) NO YEAST SEEN
[2018-04-21 09:37] LABS: AMORPHOUS SEDIMENT,URINE TRACE /HPF; APPEARANCE,URINE CLOUDY; BILIRUBIN,URINE NEGATIVE (NEGATIVE); COLOR,URINE YELLOW; GLUCOSE, URINE NEGATIVE (NEGATIVE); KETONES,URINE NEGATIVE (NEGATIVE); LEUKOCYTE ESTERASE,URINE LARGE (NEGATIVE); NITRITE,URINE NEGATIVE (NEGATIVE); PROTEIN,URINE NEGATIVE (NEGATIVE); URINE SPECIFIC GRAVITY 1.014
[2018-04-21] MEDS ORDERED: VALACYCLOVIR HCL 500 MG TABLET PO ONE (09:52)
[2018-04-21] MEDS ORDERED: FLUCONAZOLE 100 MG TABLET PO ONE (09:52)
[2018-04-21 10:08] VITALS: BP 166/88
== END 2018-04-21 10:08 | disposition home or self-care (01) ==
LOC: ER 08:05
DX: B37.3 Candidiasis of vulva and vagina (principal); I10 Essential (primary) hypertension; R30.9 Painful micturition, unspecified; R21 Rash and other nonspecific skin eruption; F17.200 Nicotine dependence, unspecified, uncomplicated
CPT/HCPCS: 81001; 87086; 87210; 87250; 99283

== ENCOUNTER 2018-05-24 01:13 | Emergency (ER) | payer SELFPAY ==
[2018-05-24 01:49] VITALS: BP 181/89
--- NOTE | 2018-05-24 02:04 | ER Document Report ---
ED General - General Chief Complaint: Wrist Pain Stated Complaint: HAND PAIN Time Seen by Provider: 05/24/18 01:46 Notes: Patient is a 52-year-old female who presents to the emergency department with a chief complaint of having a "knot" on her left wrist. She states that she is has had this on her wrist for the past month, but in the past few days the "knot " has increased in size. She is here at the emergency department because she is starting to feel pain up her left forearm. She has not seen her primary care doctor for this issue. She also states that she has not seen her primary care in a long time because she does not have insurance. She is supposed to be taking atenolol for her blood pressure. TRAVEL OUTSIDE OF THE [place] IN LAST 30 DAYS: No - Related Data Allergies/Adverse Reactions: SULFUR Adverse Reaction (Uncoded 04/21/18 08:25) Hives Past Medical History - General Information source: Patient - Social History Smoking Status: Current Every Day Smoker Frequency of alcohol use: None Drug Abuse: None Family History: Reviewed & Not Pertinent - Past Medical History Cardiac Medical History: Reports: Hx Hypercholesterolemia, Hx Hypertension Denies: Hx Coronary Artery Disease, Hx DVT, Hx Heart Attack Pulmonary Medical History: Reports: Hx Bronchitis Denies: Hx Asthma, Hx COPD, Hx Pneumonia Neurological Medical History: Denies: Hx Cerebrovascular Accident, Hx Seizures Renal/ Medical History: Denies: Hx Peritoneal Dialysis Musculoskeletal Medical History: Reports Hx Arthritis Psychiatric Medical History: Reports: Hx Bipolar Disorder, Hx Depression Past Surgical History: Reports: Hx Tubal Ligation. Denies: Hx Hysterectomy - Immunizations Hx Diphtheria, Pertussis, Tetanus Vaccination: Yes - 2008 Review of Systems - Review of Systems Notes: REVIEW OF SYSTEMS: CONSTITUTIONAL : Denies recent illness. Denies recent unintentional weight loss. Denies fever, chills, or sweats. EENT: Denies eye, ear, throat, or mouth pain, discharge, or symptoms. Denies nasal or sinus congestion. CARDIOVASCULAR: Denies chest pain. RESPIRATORY: Denies shortness of breath, cough, congestion, difficulty breathing , or wheezing. GASTROINTESTINAL: Denies nausea, vomiting, and diarrhea. Denies abdominal pain. Denies constipation. GENITOURINARY: Denies difficulty urinating, burning, blood in urine, urgency or frequency. MUSCULOSKELETAL: Denies neck and back pain. Denies joint pain or swelling. SKIN: See HPI HEMATOLOGIC : Denies easy bruising or bleeding. LYMPHATIC: Denies swollen, painful, enlarged glands. NEUROLOGICAL: Denies no numbness or tingling denies weakness. Denies headache. Denies altered mental status. Denies alteration in speech. PSYCHIATRIC: Denies stress, anxiety, alteration in sleep patterns, or depression. All other systems reviewed and negative. Physical Exam - Vital signs Vitals: Temp Pulse Resp BP Pulse Ox 97.5 F 92 14 181/89 H 99 05/24/18 01:46 05/24/18 01:46 05/24/18 01:46 05/24/18 01:46 05/24/18 01:46 - Notes Notes: PHYSICAL EXAMINATION: GENERAL: Appears well, healthy, well-nourished, no acute distress. HEAD: Normocephalic, atraumatic. EYES: PERRL, conjunctiva normal, all extraocular movements intact, sclera nonicteric ENT: Moist mucous membranes. NECK: Supple, no noticeable swelling, redness, rash. Normal range of motion. LUNGS: Equal breath sounds bilaterally and clear to auscultation. No wheezes rales or rhonchi. CARDIOVASCULAR: S1-S2, regular rate, regular rhythm. Radial pulses 2+, normal. ABDOMEN: Normoactive bowel sounds. Soft, nontender, no guarding, no rebound tenderness, and no masses palpated. EXTREMITIES: Normal strength and range of motion, no pitting or edema. No cyanosis. NEUROLOGICAL: Moves all extremities upon command. Strength 5/5 in all extremities. PSYCH: Normal mood, normal affect. SKIN: Ganglion cyst noted to left dorsal wrist. Warm, dry. No rash, lesions, ulcerations noted. Normal skin turgor. Course - Re-evaluation Re-evalutation: Patient's exam is most consistent with a ganglion cyst. I have told her that she needs to see a crankshaft balancer, but she states that she does not have insurance which is concerning to her. She also requested a refill on her blood pressure medication. I informed her that the [facility] is available to see patients based off of income. She verbalized understanding. I have also put in a social work lecturer consult to help her with her Medicaid application and setting up her primary care. - Vital Signs Vital signs: Temp Pulse Resp BP Pulse Ox 97.5 F 92 14 181/89 H 99 05/24/18 01:46 05/24/18 01:46 05/24/18 01:46 05/24/18 01:46 05/24/18 01:46 Discharge - Discharge Clinical Impression: Essential hypertension, Ganglion cyst of dorsum of left wrist Condition: Stable Disposition: HOME, SELF-CARE Additional Instructions: You have been seen in the emergency department for a bump on your left wrist. That is a ganglion cyst. The ganglion cyst is not harmful. You need to be seen by a crankshaft balancer for this matter so they can remove the sac. Please see the [facility] for management of your care. They may be able to refer you out to a crankshaft balancer. Unfortunately your high blood pressure medication that was given to you by your primary care is a combination medication. [facility] can manage this for you also. If you develop a fever greater than 100.4 F, have worsening symptoms, or have any symptoms that are worrisome to you, please return to the emergency department. Referrals: ED MODI MD [Primary Care Provider] - Follow up as needed
== END 2018-05-24 02:38 | disposition home or self-care (01) ==
LOC: ER 01:13
DX: M67.432 Ganglion, left wrist (principal); I10 Essential (primary) hypertension; F17.200 Nicotine dependence, unspecified, uncomplicated
CPT/HCPCS: 99283

== ENCOUNTER 2018-06-21 10:57 | Emergency (ER) | payer OTHER ==
[2018-06-21] MEDS ORDERED: ACETAMINOPHEN 325 MG TABLET PO ONE (11:22)
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
[2018-06-21 12:59] VITALS: BP 141/80
== END 2018-06-21 13:21 | disposition home or self-care (01) ==
LOC: ER 10:57
DX: S00.83XA Contusion of other part of head, initial encounter (principal); V87.7XXA Person injured in collision between other specified motor vehicles (traffic), initial encounter; F17.210 Nicotine dependence, cigarettes, uncomplicated; I10 Essential (primary) hypertension; J44.9 Chronic obstructive pulmonary disease, unspecified
CPT/HCPCS: 70486; 99284; 99406

== ENCOUNTER 2018-07-11 08:19 | Emergency (ER) | payer OTHER ==
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
[2018-07-11 10:23] VITALS: BP 162/98
== END 2018-07-11 09:50 | disposition home or self-care (01) ==
LOC: ER 08:19
DX: R51 Headache (principal); V49.9XXA Car occupant (driver) (passenger) injured in unspecified traffic accident, initial encounter; I10 Essential (primary) hypertension; J44.9 Chronic obstructive pulmonary disease, unspecified
CPT/HCPCS: 99283

== ENCOUNTER 2018-08-07 23:00 | Emergency (ER) | payer OTHER ==
[2018-08-07 23:06] VITALS: BP 205/101
[2018-08-08] MEDS ORDERED: ATENOLOL 50 MG TABLET PO ONE (01:53)
[2018-08-08] MEDS ORDERED: PREDNISONE 20 MG TABLET PO ONE (01:53)
[2018-08-08] MEDS ORDERED: MECLIZINE HCL 25 MG TABLET PO ONE (01:53)
--- NOTE | 2018-08-08 01:59 | ER Document Report ---
ED General - General Chief Complaint: Ear Pain Stated Complaint: DIZZINESS Time Seen by Provider: 08/08/18 01:44 Mode of Arrival: Ambulatory Information source: Patient TRAVEL OUTSIDE OF THE [place] IN LAST 30 DAYS: No - HPI Patient complains to provider of: Dizziness, ear infection, nausea Onset: Other - Past couple of days Onset/Duration: Gradual Quality of pain: Fullness Severity: Mild Associated symptoms: denies: Chills, Fever Exacerbated by: Movement, Other - Position changes Relieved by: Denies Similar symptoms previously: No Recently seen / treated by doctor: No Notes: 53-year-old female coming in [facility] with sinus congestion, earache, and room spinning dizziness. Symptoms for the past couple of days. Some mild nausea with this. No vomiting. Also coming in because out of her atenolol 50 mg. She is not having any chest pain or shortness of breath. - Related Data Allergies/Adverse Reactions: SULFUR Adverse Reaction (Uncoded 07/11/18 08:20) Hives Past Medical History - General Information source: Patient - Social History Smoking Status: Current Every Day Smoker Family History: Reviewed & Not Pertinent - Past Medical History Cardiac Medical History: Reports: Hx Hypercholesterolemia, Hx Hypertension Denies: Hx Heart Attack Pulmonary Medical History: Reports: Hx Bronchitis, Hx COPD Denies: Hx Pneumonia Neurological Medical History: Denies: Hx Seizures Renal/ Medical History: Denies: Hx Peritoneal Dialysis Musculoskeletal Medical History: Reports Hx Arthritis, Reports Hx Musculoskeletal Deformity Psychiatric Medical History: Reports: Hx Bipolar Disorder, Hx Depression Past Surgical History: Reports: Hx Tubal Ligation. Denies: Hx Hysterectomy - Immunizations Immunizations up to date: Yes Hx Diphtheria, Pertussis, Tetanus Vaccination: No Review of Systems - Review of Systems Notes: Constitutional: No fevers. No chills. EENT: No eye redness. No eye pain. + ear pain. No sore throat. + SINUS PRESSURE Cardiovascular: No chest pain. No palpitations. Respiratory: No cough. No shortness of breath. No respiratory distress. Gastrointestinal: No abdominal pain. No nausea, vomiting, or diarrhea. Genitourinary: Atraumatic. No lesions. No pain. No discharge. Musculoskeletal: Atraumatic. No swelling. No deformities. Skin: No rash or lesions. Lymphatic: No swollen lymph nodes. Neurologic: No headache. No syncope. Psychiatric: No suicidal or homicidal ideation. Physical Exam - Vital signs Vitals: Temp Pulse Resp BP Pulse Ox 98.1 F 86 16 205/101 H 97 08/07/18 23:01 08/07/18 23:01 08/07/18 23:01 08/07/18 23:01 08/07/18 23:01 - Notes Notes: General: Well-developed, well-nourished. In no acute distress. Non-toxic appe aring. Cardiac: Well-perfused. Regular rate and rhythm. No murmurs, rubs, or gallops. Pulmonary: No respiratory distress. No cyanosis. Bilateral lung fiels are clear to auscultation. Abdominal: Non-distended. Non-rigid. Bowels sounds are present in all four quadrants. No guarding or rebound. HEENT: Head is atraumatic. Sinuses diffusely tender. Bilateral TMs with effusion. No injection. Canals are normal bilaterally. No mastoid tenderness. PERRL, EOMI Neck: Supple. No adenopathy. No meningismus. Dermatologic: Warm with good turgor. No rash. Atraumatic. Chest: Atraumatic. No chest wall tenderness to palpation. Musculoskeletal: Moves all extremities well. No range of motion deficits. no muscular or joint tenderness. No paraspinal muscle tenderness. no midline spinal tenderness or step-off. Genitourinary: Examination deferred Neurologic: No gross neurologic deficits. Psychiatric: Normal mood. Course - Re-evaluation Re-evalutation: 08/08/18 02:01 Patient appears to have some serous otitis media as well as sinusitis. This is all suspected to be viral. Most likely also has some mild vertigo. We will go ahead and get her treated. We will also give her a dose of atenolol which she normally takes to help with her blood pressure. We will discharge her home. - Vital Signs Vital signs: Temp Pulse Resp BP Pulse Ox 98.1 F 86 16 205/101 H 97 08/07/18 23:01 08/07/18 23:01 08/07/18 23:01 08/07/18 23:01 08/07/18 23:01 Discharge - Discharge Clinical Impression: Vertigo, Medication refill, Sinusitis Serous otitis media Qualifiers: Chronicity: acute Laterality: bilateral Recurrence: non-recurrent Qualified Code(s): H65.03 - Acute serous otitis media, bilateral Hypertension Qualifiers: Hypertension type: unspecified Qualified Code(s): I10 - Essential (primary) hypertension Disposition: HOME, SELF-CARE Instructions: Vertigo ([facility]), Sinusitis ([facility]), Serous Otitis Media ([facility]) Prescriptions: Atenolol [Tenormin] 50 mg PO BID #60 tablet Meclizine HCl [Antivert 25 mg Tablet] 25 mg PO TID PRN #30 tablet PRN Reason: Methylprednisolone [Medrol Dosepack (4 mg/Tab) 21 Tab/Dosepak] 21 tab PO DAILY #1 dspk Forms: Elevated Blood Pressure, Smoking Cessation Education Referrals: PRIMARY CARE DOCTOR, YOUR [Other] - Follow up as needed
== END 2018-08-08 02:25 | disposition home or self-care (01) ==
LOC: ER 23:00
DX: Z76.0 Encounter for issue of repeat prescription (principal); J32.9 Chronic sinusitis, unspecified; H65.03 Acute serous otitis media, bilateral; I10 Essential (primary) hypertension; R09.81 Nasal congestion; H92.09 Otalgia, unspecified ear; R42 Dizziness and giddiness; R11.0 Nausea; Z79.899 Other long term (current) drug therapy; F17.200 Nicotine dependence, unspecified, uncomplicated; J44.9 Chronic obstructive pulmonary disease, unspecified
CPT/HCPCS: 99282; J7512

== ENCOUNTER 2019-03-20 07:25 | Emergency (ER) | payer SELFPAY ==
[2019-03-20 07:37] VITALS: BP 172/99
--- NOTE | 2019-03-20 07:56 | ER Document Report ---
ED General - General Chief Complaint: Cold Symptoms Stated Complaint: FEVER,COUGH,EAR PAIN Time Seen by Provider: 03/20/19 07:42 TRAVEL OUTSIDE OF THE [place] IN LAST 30 DAYS: No - HPI Patient complains to provider of: cough Notes: patient presents w/ 5 days of cough/sore throat/sinus congestion w/o fever she is also out of her bp medicaiton she has not taken any otc cold medicines for symptoms she denies chest pain/sob she is a smoker she has had no drainage from her ears - Related Data Allergies/Adverse Reactions: SULFUR Adverse Reaction (Uncoded 03/20/19 07:32) Hives Past Medical History - Social History Smoking Status: Current Every Day Smoker Chew tobacco use (# tins/day): No Frequency of alcohol use: None Drug Abuse: None Family History: Reviewed & Not Pertinent Patient has suicidal ideation: No Patient has homicidal ideation: No - Past Medical History Cardiac Medical History: Reports: Hx Hypercholesterolemia, Hx Hypertension Denies: Hx Heart Attack Pulmonary Medical History: Reports: Hx Bronchitis, Hx COPD Denies: Hx Pneumonia Neurological Medical History: Denies: Hx Seizures Renal/ Medical History: Denies: Hx Peritoneal Dialysis Musculoskeletal Medical History: Reports Hx Arthritis, Reports Hx Musculoskeletal Deformity Psychiatric Medical History: Reports: Hx Bipolar Disorder, Hx Depression Past Surgical History: Reports: Hx Tubal Ligation. Denies: Hx Hysterectomy - Immunizations Immunizations up to date: Yes Hx Diphtheria, Pertussis, Tetanus Vaccination: No Review of Systems - Review of Systems Constitutional: denies: Chills, Fever EENT: Ear pain, Nose congestion, Sinus pressure Cardiovascular: No symptoms reported Respiratory: Cough. denies: Short of breath, Sputum, Wheezing Gastrointestinal: No symptoms reported Genitourinary: No symptoms reported Female Genitourinary: No symptoms reported Musculoskeletal: No symptoms reported Skin: No symptoms reported Hematologic/Lymphatic: No symptoms reported Neurological/Psychological: No symptoms reported Physical Exam - Vital signs Vitals: Temp Pulse Resp BP Pulse Ox 97.8 F 87 16 172/99 H 98 03/20/19 07:33 03/20/19 07:33 03/20/19 07:33 03/20/19 07:33 03/20/19 07:33 Interpretation: Normal - General General appearance: Appears well, Alert - HEENT Head: Normocephalic, Atraumatic Eyes: Normal Pupils: PERRL Tympanic membrane: Normal Sinus: Normal Mucous membranes: Normal, Moist Pharynx: Erythema. No: Exudate, Peritonsillar abscess, Post nasal drainage, Tonsillar hypertrophy, Uvular edema Neck: Supple. No: Anterior cervical chain, Posterior cervical chain, Lymphadenopathy - Respiratory Respiratory status: No respiratory distress Chest status: Nontender Breath sounds: Normal Chest palpation: Normal - Cardiovascular Rhythm: Regular Heart sounds: Normal auscultation Murmur: No - Abdominal Inspection: Normal Distension: No distension Bowel sounds: Normal Tenderness: Nontender Organomegaly: No organomegaly - Back Back: Normal, Nontender - Extremities General upper extremity: Normal inspection, Nontender, Normal color, Normal ROM, Normal temperature General lower extremity: Normal inspection, Nontender, Normal color, Normal ROM, Normal temperature, Normal weight bearing. No: Christina's sign - Neurological Neuro grossly intact: Yes Cognition: Normal Orientation: AAOx4 Bjorn Coma Scale Eye Opening: Spontaneous [place] Coma Scale Verbal: Oriented [place] Coma Scale Motor: Obeys Commands [place] Coma Scale Total: 15 Speech: Normal Motor strength normal: LUE, RUE, LLE, RLE Sensory: Normal - Psychological Associated symptoms: Normal affect, Normal mood - Skin Skin Temperature: Warm Skin Moisture: Dry Skin Color: Normal Course - Re-evaluation Re-evalutation: 03/20/19 07:53 well appearing w/ symptoms consistent w/ viral uri due to tobacco use will treat w/ z pack, prednisone and tessalon recommend pcp follow up for bp - refill of bp med givne here - Vital Signs Vital signs: Temp Pulse Resp BP Pulse Ox 97.8 F 87 16 172/99 H 98 03/20/19 07:33 03/20/19 07:33 03/20/19 07:33 03/20/19 07:33 03/20/19 07:33 Discharge - Discharge Clinical Impression: Viral URI, Tobacco abuse, Elevated blood pressure reading Condition: Stable Disposition: HOME, SELF-CARE Instructions: Upper Respiratory Illness ([facility]) Additional Instructions: take medicine as directed return to the ED with worsening follow up with primary doctor for ongoing care Prescriptions: Atenolol/Chlorthalidone [Atenolol-Chlorthal 50-25 Tb] 1 tab PO DAILY #30 tablet Prednisone [Deltasone 20 mg Tablet] 40 mg PO DAILY #10 tablet Azithromycin [Zithromax 250 mg Tablet] 250 mg PO ASDIR PRN #6 tablet PRN Reason: Forms: Smoking Cessation Education Referrals: MARGARET KEITH MD [[facility]] - Follow up as needed
== END 2019-03-20 08:00 | disposition home or self-care (01) ==
LOC: ER 07:25
DX: J06.9 Acute upper respiratory infection, unspecified (principal); B97.89 Other viral agents as the cause of diseases classified elsewhere; I10 Essential (primary) hypertension; R50.9 Fever, unspecified; R05 Cough; R09.81 Nasal congestion; J02.9 Acute pharyngitis, unspecified; F17.200 Nicotine dependence, unspecified, uncomplicated
CPT/HCPCS: 99283